=== PATIENT | female | born 1960 | race Caucasian/White ===

== ENCOUNTER 2018-01-15 13:25 | Emergency (ER) | payer OTHER, SELFPAY ==
[2018-01-15 13:26] VITALS: BP 137/89; PULSE 121; RESP 16; TEMP 39.7; O2SAT 91; BMI 19.5
[2018-01-15 13:28] VITALS: O2SAT 88
[2018-01-15 13:43] VITALS: PULSE 120; RESP 20
[2018-01-15] MEDS: Albuterol 2.5 MG/3 ML VIAL.NEB. INHALATION (13:43)
--- NOTE | 2018-01-15 14:42 | RAD_ITS ---
STUDY: X-RAY CHEST REASON FOR EXAM: Female, 57 years old. Fever, shortness of breath TECHNIQUE: A single frontal view of the chest was obtained. COMPARISON: January 07, 2017 FINDINGS: The lungs are hyperinflated. There are no focal airspace opacities. There is no demonstrated pleural abnormality. The cardiac silhouette is normal in size. The mediastinum and hilar regions are unremarkable. Normal visualized pulmonary arteries. Normal visualized aortic arch and descending thoracic aorta. The thoracic spine is unremarkable. The visualized ribs, clavicles, and shoulders are unremarkable. There is no demonstrated abnormality of the visualized upper abdomen. RAD/Chest 1 View (Portable) IMPRESSION: There is no evidence of focal consolidation or pleural effusion. Stable COPD. Electronically Signed: Temi Solano MD at 15:48 EDT Tel Direct: [phone], Service support ,
--- NOTE | 2018-01-15 14:43 | EKG12_ITS ---
Test Reason : SOB Blood Pressure : / mmHG Vent. Rate : 113 BPM Atrial Rate : 113 BPM P-R Int : 126 ms QRS Dur : 080 ms QT Int : 314 ms P-R-T Axes : 060 057 055 degrees QTc Int : 430 ms Sinus tachycardia Confirmed by LIV LANGSTON, MARK ([id number]), associate entertainment editor ESTEPHANIE QUINTANILLA ([id number]) on 01/21/2018 3:03:03 PM Referred By: CELIA Confirmed By:MARK PECK MD
--- NOTE | 2018-01-15 14:48 | ED.DCSUM_ITS ---
- ER Visit Summary Date of Service: 01/15/18 Chief Complaint: Fever History of Present Illness: The patient is a 57 F presenting with fever, shortness of breath, cough. Patient states it started on Saturday. She went to urgent care and was told to take Mucinex. She complains of persistently worsening symptoms. She has had dizziness, cough, shortness of breath. She denies chest pain. She has had temperatures up to 104 at home. She has a history of CLL but no current treatment. Physical Examination: Blood pressure 137/89, temperature 103.4, heart rate 120, respiratory rate 20. Pulse ox 88% on room air. Alert no acute distress. HEENT exam is unremarkable. Neck is supple. Lungs are expiratory wheezing bilaterally. Heart is regular rate and rhythm. Abdomen is soft nontender nondistended. Extremities are unremarkable. Skin is warm and dry. No focal neurologic deficit. Remainder of exam is unremarkable. Emergency Department Course and Treatment: Patient is given IV fluids, Tylenol, albuterol. CBC showed a white count of 16.1, platelets 84. Chemistries show potassium 3.3, glucose 172. Troponin is negative. D-dimer negative. Chest x- ray shows no infiltrate, COPD. Influenza B positive. Due to patient's hypoxia at rest discussed need for admission. Patient states she is unable to stay in the hospital as she has appointment for her cats in the morning. She states she cannot miss this appointment. She understands risks of leaving AGAINST MEDICAL ADVICE including respiratory distress and . She signed out AGAINST MEDICAL ADVICE. Disposition: Left AGAINST MEDICAL ADVICE Impression: Influenza B, hypoxia This note was generated with [employer] dictation software. It may contain incorrect words, spelling, and punctuation that were not noted in review of the chart prior to signing ED Disposition - Plan for ED Patient: Chief Complaint: Shortness of Breath Referrals: Doretha Alberts MD [Primary Care Provider] -
[2018-01-15 15:13] LABS: Absolute Lymphocyte Count 11.34 X10^3/ul (0.83-4.51); Absolute Neutrophil Count 4.3 X10^3/uL (2.0-7.7); Basophil# 0.01 X10^3/uL; Basophil% 0.1 % (0-1); Hematocrit 41.5 % (37-47); Hemoglobin 13.7 g/dl (12.0-15.0); Lymphocyte # 11.34 X10^3/ul (4.0); Lymphocyte % 70.3 % (19-41); Mean Corpuscular Hgb 30.1 pg (27.0-32.0); Mean Corpuscular Volume 91.2 fL (81-99); Mean Platelet Vol. 10.3 fl (6.2-12.0); Monocyte# 0.41 X10^3/uL; Monocyte% 2.5 % (0-10); Neutrophil # 4.34 X10^3/uL (2.7-7.7); Platelet Count 84 K/mm3 (150-450); RBC Distribution Width CV 12.5 % (11.6-14.6); RBC Distribution Width SD 41.8 fl (35.1-43.9); Red Blood Count 4.55 M/mm3 (4.2-5.4); White Blood Count 16.1 K/mm3 (4.4-11.0)
[2018-01-15 15:14] LABS: Differential Indicated SCAN CRITERIA MET; POSITIVE COUNT NO; POSITIVE DIFFERENTIAL YES; POSITIVE MORPHOLOGY NO
[2018-01-15 15:24] LABS: Anion Gap 8 (5-15); BUN 8 mg/dL (7-18); BUN/Creat Ratio 9.6 RATIO (10-20); Calcium,Total 7.9 mg/dL (8.5-10.1); Chloride 99 mmol/L (98-107); Creatinine, Serum 0.83 mg/dL (0.55-1.02); EST Glomerular Filtration Rate 74 mL/min (>60); Est Glom Filt Rate - Afr Amer 90 mL/min (>60); Estimated Creatinine Clearance 56.33 ml/min; Glucose 172 mg/dL (74-106); Potassium 3.3 mmol/L (3.5-5.1); Sodium Level 136 mmol/L (136-145)
[2018-01-15 15:25] LABS: D-Dimer Quantitative (DVT/PE) 0.29 FEU/ug/m (0.27-0.49)
[2018-01-15 15:35] LABS: Lactic Acid 1.9 mmol/L (0.4-2.0)
[2018-01-15 15:39] VITALS: BP 115/43; RESP 20; O2SAT 98
[2018-01-15] MEDS: Acetaminophen 500 MG Tablet 1000 MG PO (15:46)
[2018-01-15] MEDS: 0.9% Normal Saline 1,000 ML 1000 ML IV (15:46)
[2018-01-15 15:55] LABS: Differential Comment SCANNED
[2018-01-15 15:57] LABS: Mucous, Urine 0 SEEN /hpf (<or=2+); Red Blood Cells-Urine 0 SEEN /hpf (0-5)
--- NOTE | 2018-01-15 16:06 | CASEMGMT ---
Social Work Note In to complete initial assessment as pt is anticipated to be admitted. Introduced self and role at [facility]. Pt reports to live alone in an apartment and states she has access to transportation, but does not drive herself. Denies DME needs. Pt is on disability and has medical insurance. Confirms that her income is too great to qualify for Medicaid, but expresses concern with too many doctor bills. Pt begins to state to nurse that she would like to leave. RN educates that pt that we are still waiting on results and encouragers her to stay, but also informs she has the right to leave AMA. Pt continues to state she wants to leave, but would like to see her results. Pt made aware that SW is available if needs arise, and pt does not anticipate d/c needs at this time. Daina Cohen, MOLDING TECHNICIAN, PLANNER CHIEF
[2018-01-15 16:12] LABS: Color, Urine Yellow (Yellow); Glucose, Dipstick Normal (Normal); Ketone-Dipstick Negative (Negative); Leukocyte Esterase-Dipstick 25 /ul (Negative); Nitrite-Dipstick Negative (Negative); Occult Blood-Urine 25 /ul (Negative); Protein-Dipstick 30 mg/dl (Negative); Urine Bilirubin Dipstick Negative (Negative); Urine Clarity Clear (Clear); Urine Urobilinogen Normal (Normal)
[2018-01-15 16:18] LABS: Bacteria 1+ /hpf (None Seen); Squamous Epithelial Cells - UA 0-5 SEEN /hpf (5-10); Transitional Epithelial - Ur 0-5 SEEN /hpf (0-5); White Blood Cells 0-5 SEEN /hpf (0-5)
--- NOTE | 2018-01-15 16:20 | ED.DEP ---
ED Disposition - Plan for ED Patient: Chief Complaint: Shortness of Breath Instructions: ED Flu Referrals: Doretha Alberts MD [Primary Care Provider] -
[2018-01-15 16:44] VITALS: PULSE 112; RESP 16
[2018-01-15] MEDS: Ipratropium/Albuterol Sulfate 3 ML AMPUL.NEB INHALATION (16:44)
[2018-01-15 16:53] VITALS: BP 104/67; PULSE 101; RESP 24; O2SAT 87
--- NOTE | 2018-01-15 16:56 | ED.RN ---
PT REFUSING TO BE ADMITTED. DANGER OF HYPOXIA EXPLAINED BY MULTIPLE STAFF MEMBER AND PT ACKNOWLEDGES DANGER AND STILL REFUSES. PT SIGNED AMA PAPERWORKK. ANOTHER BREATHING TREATMENT GIVEN PRIOR TO DISCHARGE AND PT REMAINED 86-87% RA. RESPIRATORY THERAPIST ALSO ENCOURAGED PT TO STAY BUT PT VERBALIZED UNDERSTANDING AND STATED SHE IS GOING HOME. IV DC'D W CATHETER INTACT AND GIVEN INSTRUCTIONS. PT THEN AMBULATED FROM ER WITH STEADY GAIT.
== END 2018-01-15 17:00 | disposition home or self-care (01) ==
PROVIDERS: Emergency Provider Emergency Medicine; Family Provider Internal Medicine; PCP Internal Medicine
DX: J10.1 Influenza due to other identified influenza virus with other respiratory manifestations (principal); R09.02 Hypoxemia; R05 Cough; R06.00 Dyspnea, unspecified; Z72.0 Tobacco use; Z79.899 Other long term (current) drug therapy; Z85.6 Personal history of leukemia
CPT/HCPCS: 71045; 80048; 81001; 83605; 84484; 85025; 85379; 87804; 93005; 94640; 96360; 99284; J7030; A4216